=== PATIENT | female | born 1975 ===

== ENCOUNTER 2023-04-11 21:26 | Emergency (ER) | payer MEDICAID, SELFPAY ==
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
[2023-04-11 21:46] VITALS: BP 115/77; PULSE 66; RESP 18; TEMP 36.9; O2SAT 99; BMI 30.9
[2023-04-11 22:45] VITALS: BP 129/88; PULSE 66; RESP 18; TEMP 37.4; O2SAT 99
[2023-04-11 23:04] VITALS: BP 149/65; PULSE 53; RESP 16; TEMP 36.9; O2SAT 97
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
[2023-04-11 23:27] VITALS: BP 119/87; PULSE 63; RESP 16; TEMP 36.6; O2SAT 98
[2023-04-11] MEDS: Acetaminophen 325 MG TABLET 650 MG PO (23:37)
== END 2023-04-12 00:35 | disposition home or self-care (01) ==
PROVIDERS: Emergency Provider Emergency Medicine
DX: S16.1XXA Strain of muscle, fascia and tendon at neck level, initial encounter (principal); Y04.2XXA Assault by strike against or bumped into by another person, initial encounter; Y93.89 Activity, other specified; Y92.9 Unspecified place or not applicable; Y99.9 Unspecified external cause status
CPT/HCPCS: 72125; 99284